=== PATIENT | female | born 1985 | race Two or more races ===

== ENCOUNTER 2018-03-07 19:49 | Emergency (ER) | payer SELFPAY ==
[2018-03-07] MEDS ORDERED: ACETAMINOPHEN 325 MG TABLET PO ONE ×2 (20:12→20:33)
[2018-03-07] MEDS ORDERED: ONDANSETRON 4 MG TAB.RAPDIS PO ONE (20:33)
--- NOTE | 2018-03-07 20:34 | ER Document Report ---
ED Medical Screen (RME) - General Chief Complaint: UTI, fever, chills, vomiting, dizziness, VAZ Stated Complaint: DIZZINES / VOMITING Time Seen by Provider: 03/07/18 20:27 Notes: 32-year-old female patient started having UTI symptoms 2 weeks ago. Urine was cloudy with bad odor. She drank lots of fluids, lots cranberry juice, and used Azo-Standard to suppress the dysuria and frequency symptoms. She is now having fever chills with nausea and vomiting today. I have greeted and performed a rapid initial assessment of this patient. A comprehensive ED assessment and evaluation of the patient, analysis of test results and completion of the medical decision making process will be conducted by additional ED providers. TRAVEL OUTSIDE OF THE [place] IN LAST 30 DAYS: No - Related Data Allergies/Adverse Reactions: No Known Allergies Allergy (Unverified 03/07/18 19:54) Physical Exam - Vital signs Vitals: Temp Pulse Resp BP Pulse Ox 102.4 F H 99 24 H 125/78 100 03/07/18 20:08 03/07/18 20:08 03/07/18 20:08 03/07/18 20:08 03/07/18 20:08 Course - Vital Signs Vital signs: Temp Pulse Resp BP Pulse Ox 102.4 F H 99 24 H 125/78 100 03/07/18 20:08 03/07/18 20:08 03/07/18 20:08 03/07/18 20:08 03/07/18 20:08 Doctor's Discharge - Discharge Referrals: NIRAV CHILDS MD [Primary Care Provider] - Follow up as needed
[2018-03-07 21:09] LABS: ABSOLUTE MONOCYTES (AUTO) 1.1 10^3/uL (0.1-1.4); ABSOLUTE NEUT (AUTO) 8.5 10^3/uL (1.7-8.2); BASOPHILS % (AUTO) 0.2 % (0-2); EOSINOPHILS % (AUTO) 0.1 % (0-6); HEMATOCRIT 38.3 % (36.0-47.0); HEMOGLOBIN 13.1 g/dL (12.0-15.5); LYMPHOCYTES % (AUTO) 9.4 % (13-45); MEAN CORPUSCULAR HEMOGLOBIN 29.5 pg (27.0-33.4); MEAN CORPUSCULAR HGB CONC 34.2 g/dL (32.0-36.0); MEAN CORPUSCULAR VOLUME 86 fl (80-97); MONOCYTES % (AUTO) 10.5 % (3-13); PLATELET COUNT 259 10^3/uL (150-450); RED BLOOD COUNT 4.44 10^6/uL (3.72-5.28); RED CELL DISTRIBUTION WIDTH 12.6 % (11.5-14.0); SEGMENTED NEUTROPHILS % (AUTO) 79.8 % (42-78); TOTAL CELLS COUNTED % (AUTO) 100 %; WHITE BLOOD COUNT 10.7 10^3/uL (4.0-10.5)
--- NOTE | 2018-03-07 21:24 | ER Document Report ---
ED General - General Chief Complaint: UTI, fever, chills, vomiting, dizziness, VAZ Stated Complaint: DIZZINES / VOMITING Time Seen by Provider: 03/07/18 20:27 Mode of Arrival: Ambulatory Information source: Patient Notes: 32 year old female presents to the ED with complaints of increased urgency/ frequency for the last 3 days. Patient says she's been consuming fluids and cranberry juice. She started taking Azo and motrin. Patient says that today she began having fever, chills, nausea and vomiting. She denies any abdominal pain. Hx of appendectomy. TRAVEL OUTSIDE OF THE [place] IN LAST 30 DAYS: No - HPI Onset: Other - 3 days Onset/Duration: Gradual Quality of pain: No pain Associated symptoms: Nausea, Vomiting Exacerbated by: Denies Relieved by: Denies Similar symptoms previously: Yes Recently seen / treated by doctor: No - Related Data Allergies/Adverse Reactions: No Known Allergies Allergy (Unverified 03/07/18 19:54) Past Medical History - General Information source: Patient - Social History Smoking Status: Former Smoker Frequency of alcohol use: Rare Drug Abuse: None Family History: Reviewed & Not Pertinent Patient has suicidal ideation: No Patient has homicidal ideation: No Renal/ Medical History: Denies: Hx Peritoneal Dialysis Past Surgical History: Reports: Hx Appendectomy Review of Systems - Review of Systems Constitutional: Chills, Fever EENT: No symptoms reported Cardiovascular: No symptoms reported Respiratory: No symptoms reported Gastrointestinal: Nausea, Vomiting Genitourinary: Frequency, Urgency Female Genitourinary: No symptoms reported Musculoskeletal: No symptoms reported Skin: No symptoms reported Hematologic/Lymphatic: No symptoms reported Neurological/Psychological: No symptoms reported -: Yes All other systems reviewed and negative Physical Exam - Vital signs Vitals: Temp Pulse Resp BP Pulse Ox 102.4 F H 99 24 H 125/78 100 03/07/18 20:08 03/07/18 20:08 03/07/18 20:08 03/07/18 20:08 03/07/18 20:08 - Notes Notes: PHYSICAL EXAMINATION: GENERAL: Well-appearing, well-nourished and in no acute distress. HEAD: Atraumatic, normocephalic. EYES: Pupils equal round and reactive to light, extraocular movements intact, conjunctiva are normal. ENT: Nares patent, oropharynx clear without exudates. Moist mucous membranes. NECK: Normal range of motion, supple without lymphadenopathy LUNGS: Breath sounds clear to auscultation bilaterally and equal. No wheezes rales or rhonchi. HEART: Regular rate and rhythm without murmurs ABDOMEN: Soft, nontender, nondistended abdomen. No guarding, no rebound. No masses appreciated. Female : deferred Musculoskeletal: Normal range of motion, no pitting or edema. No cyanosis. NEUROLOGICAL: Cranial nerves grossly intact. Normal speech, normal gait. Normal sensory, motor exams PSYCH: Normal mood, normal affect. SKIN: Warm, Dry, normal turgor, no rashes or lesions noted. Course - Re-evaluation Re-evalutation: 03/07/18 21:24 No abdominal tenderness to palpation. No rebound or guarding. Normal active bowel sounds. 03/07/18 22:17 03/07/18 23:02 Labs and imaging obtained. Patient's white blood cell count is slightly elevated. Urinalysis shows signs of infection. Patient was given Zofran. Her nausea has resolved. Abdomen is soft, nontender, nondistended with normal active bowel sounds. Patient denies any abdominal pain at this time. I discussed the results with the patient. I told her she does have a urinary tract infection. I discussed admission versus discharge with the patient. Patient declines admission to the hospital. Vitals are stable and improved from earlier. I will give her a dose of IV Rocephin in the emergency department and then discharge her home on p.o. antibiotics. Patient instructed to take the medication as directed, to followup with her primary care physician this week, and to return for worsening symptoms. Patient is agreeable with the plan of care. 03/07/18 23:13 - Vital Signs Vital signs: Temp Pulse Resp BP Pulse Ox 98.6 F 70 16 109/63 95 03/07/18 22:29 03/07/18 22:33 03/07/18 22:33 03/07/18 22:33 03/07/18 22:33 - Laboratory Result Diagrams: 03/07/18 20:50 03/07/18 20:50 Laboratory results interpreted by me: 03/07/18 03/07/18 03/07/18 20:50 20:50 20:50 WBC 10.7 H Seg Neutrophils % 79.8 H Lymphocytes % 9.4 L Absolute Neutrophils 8.5 H Potassium 3.4 L Chloride 95 L Glucose 134 H Urine Protein 30 H Urine Ketones TRACE H Urine Nitrite POSITIVE H Urine Urobilinogen 4.0 H Ur Leukocyte Esterase MODERATE H Urine Ascorbic Acid 20 H Discharge - Discharge Clinical Impression: Urinary tract infection Qualifiers: Urinary tract infection type: site unspecified Hematuria presence: without hematuria Qualified Code(s): N39.0 - Urinary tract infection, site not specified Condition: Good Disposition: HOME, SELF-CARE Instructions: Urinary Tract Infection ([facility]) Prescriptions: Levofloxacin [Levaquin 750 mg Tablet] 750 mg PO DAILY #5 tablet Ondansetron [Zofran Odt 4 mg Tablet] 1 tab PO Q4H PRN #15 tab.rapdis PRN Reason: For Nausea/Vomiting Referrals: NIRAV CHILDS MD [ACTIVE STAFF] - Follow up as needed
[2018-03-07 21:28] LABS: ALANINE AMINOTRANSFERASE 22 U/L (9-52); ALBUMIN 4.4 g/dL (3.5-5.0); ALKALINE PHOSPHATASE 68 U/L (38-126); ANION GAP 16 (5-19); ASPARTATE AMINO TRANSFERASE 24 U/L (14-36); BILIRUBIN,DIRECT 0.3 mg/dL (0.0-0.4); BILIRUBIN,TOTAL 0.8 mg/dL (0.2-1.3); BLOOD UREA NITROGEN 7 mg/dL (7-20); CALCIUM 9.6 mg/dL (8.4-10.2); CARBON DIOXIDE 29 mmol/L (22-30); CHLORIDE 95 mmol/L (98-107); GLUCOSE 134 mg/dL (75-110); POTASSIUM 3.4 mmol/L (3.6-5.0); SODIUM 139.5 mmol/L (137-145); TOTAL PROTEIN 7.7 g/dL (6.3-8.2)
[2018-03-07 21:45] LABS: APPEARANCE,URINE CLOUDY; BILIRUBIN,URINE NEGATIVE (NEGATIVE); COLOR,URINE YELLOW; GLUCOSE, URINE NEGATIVE (NEGATIVE); KETONES,URINE TRACE mg/dL (NEGATIVE); LEUKOCYTE ESTERASE,URINE MODERATE (NEGATIVE); NITRITE,URINE POSITIVE (NEGATIVE); PROTEIN,URINE 30 mg/dL (NEGATIVE); URINE SPECIFIC GRAVITY 1.014
[2018-03-07] MEDS ORDERED: CEFTRIAXONE INJ 1000 MG VIAL IV ONE (22:05)
[2018-03-07 23:22] VITALS: BP 117/72
== END 2018-03-07 23:22 | disposition home or self-care (01) ==
LOC: ER 19:49
DX: N39.0 Urinary tract infection, site not specified (principal); R50.9 Fever, unspecified; R51 Headache; R42 Dizziness and giddiness
CPT/HCPCS: 99284; 96365; 36415; 87040; 87086; 84703; 85025; 87088; 80053; 81001; 87186; S0119; J0696

== ENCOUNTER 2018-08-26 17:23 | Emergency (ER) | payer OTHER ==
[2018-08-26 17:53] LABS: APPEARANCE,URINE SLIGHTLY-CLOUDY; BILIRUBIN,URINE NEGATIVE (NEGATIVE); COLOR,URINE YELLOW; GLUCOSE, URINE NEGATIVE (NEGATIVE); KETONES,URINE NEGATIVE (NEGATIVE); LEUKOCYTE ESTERASE,URINE LARGE (NEGATIVE); NITRITE,URINE POSITIVE (NEGATIVE); PROTEIN,URINE NEGATIVE (NEGATIVE); URINE SPECIFIC GRAVITY 1.017; UROBILINOGEN,URINE NEGATIVE mg/dL (<2.0)
[2018-08-26] MEDS ORDERED: PHENAZOPYRIDINE HCL 200 MG TABLET PO ONE (19:27)
[2018-08-26] MEDS ORDERED: CEPHALEXIN 500 MG CAPSULE PO ONE (19:27)
--- NOTE | 2018-08-26 19:29 | ER Document Report ---
HPI - HPI Patient complains to provider of: UTI Time Seen by Provider: 08/26/18 19:26 Onset: Other - 5 days Onset/Duration: Persistent Quality of pain: Burning Pain Level: 3 Context: Patient presents complaining of frequency and urgency symptoms with dysuria for the past 5 days. Patient denies any fever, flank pain nausea or vomiting. Patient denies any concerns about any sexually transmitted infection. Patient states she has had a UTI before and this feels the same. Associated Symptoms: denies: Fever, Vomiting Exacerbated by: Denies Relieved by: Denies Similar symptoms previously: Yes Recently seen / treated by doctor: No - ROS ROS below otherwise negative: Yes Systems Reviewed and Negative: Yes All other systems reviewed and negative - CONSTITUTIONAL Constitutional: DENIES: Fever, Chills - CARDIOVASCULAR Cardiovascular: DENIES: Chest pain - GASTROINTESTINAL Gastrointestinal: DENIES: Abdominal Pain, Nausea - URINARY Urinary: REPORTS: Dysuria, Urgency, Frequency - REPRODUCTIVE Reproductive: DENIES: : - MUSCULOSKELETAL Musculoskeletal: DENIES: Extremity pain, Back Pain - DERM Skin Color: Normal Skin Problems: None Past Medical History - General Information source: Patient - Social History Smoking Status: Never Smoker Chew tobacco use (# tins/day): No Frequency of alcohol use: None Drug Abuse: None Occupation: None Lives with: Family Family History: Reviewed & Not Pertinent Patient has suicidal ideation: No Patient has homicidal ideation: No EENT Medical History: Reports: Other - Allergies Renal/ Medical History: Denies: Hx Peritoneal Dialysis Musculoskeletal Medical History: Reports Hx Arthritis Past Surgical History: Reports: Hx Appendectomy Vertical Provider Document - CONSTITUTIONAL Agree With Documented VS: Yes Exam Limitations: No Limitations General Appearance: WD/WN, No Apparent Distress - INFECTION CONTROL TRAVEL OUTSIDE OF THE [place] IN LAST 30 DAYS: No - HEENT HEENT: Atraumatic, Normocephalic - NECK Neck: Normal Inspection - RESPIRATORY Respiratory: Breath Sounds Normal, No Respiratory Distress - CARDIOVASCULAR Cardiovascular: Regular Rate, Regular Rhythm - GI/ABDOMEN Gastrointestinal: Abdomen Soft, Abdomen Non-Tender, No Organomegaly - BACK Back: Normal Inspection. negative: CVA Tenderness-Right, CVA Tenderness-Left - MUSCULOSKELETAL/EXTREMETIES Musculoskeletal/Extremeties: MAEW - NEURO Level of Consciousness: Awake, Alert, Appropriate Motor/Sensory: No Motor Deficit - DERM Integumentary: Warm, Dry, No Rash Course - Re-evaluation Re-evalutation: 08/26/18 19:27 Patient with UTI, patient without any concerns about or STI. Patient without any flank pain fever abdominal pain or vomiting. No concern for sepsis at this time. No history of kidney stones. Patient stable for discharge at this time. - Vital Signs Vital signs: Temp Pulse Resp BP Pulse Ox 98.2 F 66 18 138/69 H 100 08/26/18 17:58 08/26/18 17:58 08/26/18 17:58 08/26/18 17:58 08/26/18 17:58 - Laboratory Laboratory results interpreted by me: 08/26/18 17:35 Urine Nitrite POSITIVE H Ur Leukocyte Esterase LARGE H 08/26/18 20:49 Labs- Entire Visit 08/26/18 17:35 Urine Color YELLOW Urine Appearance SLIGHTLY-CLOUDY Urine pH 8.0 Ur Specific Kouts 1.017 Urine Protein NEGATIVE Urine Glucose (UA) NEGATIVE Urine Ketones NEGATIVE Urine Blood NEGATIVE Urine Nitrite POSITIVE H Urine Bilirubin NEGATIVE Urine Urobilinogen NEGATIVE Ur Leukocyte Esterase LARGE H Urine WBC (Auto) 21 Urine RBC (Auto) 0 Urine Bacteria (Auto) 2+ Squamous Epi Cells Auto 3 Urine Mucus (Auto) RARE Urine Ascorbic Acid NEGATIVE Discharge - Discharge Clinical Impression: UTI (urinary tract infection) Qualifiers: Urinary tract infection type: site unspecified Hematuria presence: without hematuria Qualified Code(s): N39.0 - Urinary tract infection, site not specified Condition: Stable Disposition: HOME, SELF-CARE Instructions: Cephalexin ([facility]), Urinary Anesthetic Agent ([facility]), Urinary Tract Infection ([facility]) Additional Instructions: Return immediately for any new or worsening symptoms Followup with your primary care provider, call tomorrow to make a followup appointment Prescriptions: Cephalexin Monohydrate [Keflex 500 mg Capsule] 500 mg PO Q6H 5 Days capsule Phenazopyridine HCl [Pyridium 200 mg Tablet] 200 mg PO TID #15 tablet Referrals: [facility] [Provider Group] - Follow up as needed
[2018-08-26 19:33] VITALS: BP 126/78
== END 2018-08-26 19:34 | disposition home or self-care (01) ==
LOC: ER 17:23
DX: N39.0 Urinary tract infection, site not specified (principal); R35.0 Frequency of micturition; R39.15 Urgency of urination
CPT/HCPCS: 99283; 87086; 87088; 81001; 87186; J3490

== ENCOUNTER 2019-01-18 09:43 | Emergency (ER) | payer OTHER ==
[2019-01-18 09:50] VITALS: BP 125/56
[2019-01-18 10:17] LABS: APPEARANCE,URINE CLEAR; BILIRUBIN,URINE NEGATIVE (NEGATIVE); COLOR,URINE STRAW; GLUCOSE, URINE NEGATIVE (NEGATIVE); KETONES,URINE NEGATIVE (NEGATIVE); LEUKOCYTE ESTERASE,URINE LARGE (NEGATIVE); NITRITE,URINE NEGATIVE (NEGATIVE); PROTEIN,URINE NEGATIVE (NEGATIVE); URINE SPECIFIC GRAVITY 1.008; UROBILINOGEN,URINE NEGATIVE mg/dL (<2.0)
[2019-01-18] MEDS ORDERED: CEPHALEXIN 500 MG CAPSULE PO ONE (10:24)
--- NOTE | 2019-01-18 10:27 | ER Document Report ---
ED GI/ - General Chief Complaint: Urinary Problem Stated Complaint: PAINFUL URINATION,ABDOMINAL PAIN Time Seen by Provider: 01/18/19 09:58 Information source: Patient Notes: HPI: 33-year-old female who presents with some dysuria and suprapubic abdominal pressure with urination starting last night. No fevers or flank pain. No vomiting or diarrhea. History of UTI in the past. has a vasectomy. ROS: See HPI All other review of systems reviewed and otherwise negative Reviewed vital signs and nursing note as charted by RN. PHYSICAL EXAM: CONSTITUTIONAL: Alert and oriented and responds appropriately to questions. Well-appearing; well-nourished HEAD: Normocephalic; atraumatic CARD: Regular rate and rhythm; no murmurs; symmetric distal pulses RESP: Normal chest excursion without splinting or tachypnea; breath sounds clear and equal bilaterally ABD/GI: Normal bowel sounds; non-distended; soft, non-tender currently to deep palpation of all 4 quadrants of the abdomen BACK: The back appears normal and is non-tender to palpation along the midline spine or CVA regions EXT: Normal ROM in all joints; non-tender to palpation; no edema SKIN: No acute lesions noted NEURO: CN 2-12 intact; 5/5 bilateral upper and lower extremity strength with sensation intact to light touch PSYCH: The patient's mood and manner are appropriate. Grooming and personal hygiene are appropriate. TRAVEL OUTSIDE OF THE [place] IN LAST 30 DAYS: No - Related Data Allergies/Adverse Reactions: No Known Allergies Allergy (Verified 01/18/19 09:49) Past Medical History - Social History Smoking Status: Unknown if Ever Smoked Chew tobacco use (# tins/day): No Drug Abuse: None Family History: Reviewed & Not Pertinent Patient has suicidal ideation: No Patient has homicidal ideation: No Renal/ Medical History: Denies: Hx Peritoneal Dialysis Musculoskeletal Medical History: Reports Hx Arthritis Past Surgical History: Reports: Hx Appendectomy, Hx Orthopedic Surgery - corrective scoliosis surgery Physical Exam - Vital signs Vitals: Temp Pulse Resp BP Pulse Ox 97.7 F 78 20 125/56 L 100 01/18/19 09:49 01/18/19 09:49 01/18/19 09:49 01/18/19 09:49 01/18/19 09:49 Course - Re-evaluation Re-evalutation: 01/18/19 10:25 Given the above history and physical we did order a urine testing on analysis. Results as recorded. Patient has no allergies. She denies a history of resistant infections. No history of diabetes, fevers or vomiting. No signs of pyelonephritis. We will start the patient on Keflex with strict return precautions with urine culture pending and follow-up with the primary doctor. - Vital Signs Vital signs: Temp Pulse Resp BP Pulse Ox 97.7 F 78 20 125/56 L 100 01/18/19 09:49 01/18/19 09:49 01/18/19 09:49 01/18/19 09:49 01/18/19 09:49 - Laboratory Laboratory results interpreted by me: 01/18/19 10:00 Urine Blood SMALL H Ur Leukocyte Esterase LARGE H Discharge - Discharge Clinical Impression: UTI (urinary tract infection) Qualifiers: Urinary tract infection type: site unspecified Hematuria presence: without hematuria Qualified Code(s): N39.0 - Urinary tract infection, site not specified Condition: Good Disposition: HOME, SELF-CARE Instructions: Cephalexin ([facility]), Urinary Tract Infection ([facility]) Additional Instructions: Come back immediately with any fevers, back pain, vomiting, increased pain, or any other acute problems. Please follow-up regarding the urine culture with the primary care physician as we have discussed. Prescriptions: Fluconazole [Diflucan] 150 mg PO ONCE PRN #1 tablet PRN Reason: Cephalexin Monohydrate [Keflex 500 mg Capsule] 500 mg PO Q6H 7 Days #21 capsule
== END 2019-01-18 10:36 | disposition home or self-care (01) ==
LOC: ER 09:43
DX: N39.0 Urinary tract infection, site not specified (principal); R39.198 Other difficulties with micturition; R30.9 Painful micturition, unspecified; R10.30 Lower abdominal pain, unspecified
CPT/HCPCS: 81001; 81025; 87086; 87088; 87186; 99284

== ENCOUNTER 2019-07-06 17:24 | Emergency (ER) | payer BC, OTHER ==
[2019-07-06] MEDS ORDERED: ACETAMINOPHEN 325 MG TABLET PO ONE (18:20)
[2019-07-06] MEDS ORDERED: IBUPROFEN 600 MG TABLET PO ONE (18:20)
--- NOTE | 2019-07-06 18:20 | ER Document Report ---
HPI - HPI Time Seen by Provider: 07/06/19 18:12 Pain Level: 3 Notes: Otherwise healthy 33-year-old female presenting to emergency department chief complaint of fever, body aches, chills, exposure to flu. - CONSTITUTIONAL Constitutional: REPORTS: Fever, Chills - REPRODUCTIVE Reproductive: DENIES: : Past Medical History - General Information source: Patient - Social History Smoking Status: Former Smoker Frequency of alcohol use: None Drug Abuse: None Family History: Reviewed & Not Pertinent Patient has suicidal ideation: No Patient has homicidal ideation: No Renal/ Medical History: Denies: Hx Peritoneal Dialysis Musculoskeletal Medical History: Reports Hx Arthritis Past Surgical History: Reports: Hx Appendectomy, Hx Orthopedic Surgery - corrective scoliosis surgery Vertical Provider Document - CONSTITUTIONAL Notes: PHYSICAL EXAMINATION: GENERAL: Well-appearing, well-nourished and in no acute distress. HEAD: Atraumatic, normocephalic. EYES: Pupils equal round and reactive to light, extraocular movements intact, conjunctiva are normal. ENT: Nares patent, oropharynx clear without exudates. Moist mucous membranes. NECK: Normal range of motion, supple without lymphadenopathy LUNGS: Breath sounds clear to auscultation bilaterally and equal. No wheezes rales or rhonchi. HEART: Regular rate and rhythm without murmurs ABDOMEN: Soft, nontender, nondistended abdomen. No guarding, no rebound. No masses appreciated. Female : deferred Musculoskeletal: Normal range of motion, no pitting or edema. No cyanosis. NEUROLOGICAL: Cranial nerves grossly intact. Normal speech, normal gait. Normal sensory, motor exams PSYCH: Normal mood, normal affect. SKIN: Warm, Dry, normal turgor, no rashes or lesions noted. - INFECTION CONTROL TRAVEL OUTSIDE OF THE [place] IN LAST 30 DAYS: No Course - Re-evaluation Re-evalutation: Patient appears well, nontoxic.Influenza negative. Likely viral upper respiratory illness versus flulike illness. Patient will be discharged home in stable condition at this time. - Vital Signs Vital signs: Temp Pulse Resp BP Pulse Ox 100.5 F H 111 H 16 126/86 H 100 07/06/19 17:38 07/06/19 17:38 07/06/19 17:38 07/06/19 17:38 07/06/19 17:38 Discharge - Discharge Clinical Impression: Flu-like illness Condition: Stable Disposition: HOME, SELF-CARE Instructions: Viral Syndrome ([facility]) Additional Instructions: Your influenza testing today was negative. Please drink plenty of fluids. [id number] Tylenol or ibuprofen. Get plenty of rest. No work today or tomorrow. Follow-up with your primary care provider for recheck in 3 to 5 days if not improving, return to the emergency department if worsening. Forms: Return to Work
[2019-07-06 19:24] LABS: A TYPE INFLUENZA AG NEGATIVE (NEGATIVE); B INFLUENZA AG NEGATIVE (NEGATIVE)
[2019-07-06 20:10] VITALS: BP 125/81
== END 2019-07-06 20:08 | disposition home or self-care (01) ==
LOC: ER 17:24
DX: J11.1 Influenza due to unidentified influenza virus with other respiratory manifestations (principal); R50.9 Fever, unspecified
CPT/HCPCS: 87804; 99283